=== PATIENT | female | born 1990 | race Caucasian/White ===

== ENCOUNTER 2017-11-25 12:27 | Emergency (ER) | payer MEDICAID ==
[~2017-11-25] VITALS: Ht 162.6 cm; Wt 76.4 kg
[2017-11-25 12:41] VITALS: BP 160/100
[2017-11-25] MEDS ORDERED: ONDANSETRON ODT 4 MG PO ONE (13:00)
[2017-11-25] MEDS ORDERED: PLEASE ENTER ALLERGIES MC SCH (13:00)
[2017-11-25] MEDS ORDERED: RABIES IMMUNE GLOBULIN/PF 150 UNITS/ML, 2ML IM ONE (13:00)
[2017-11-25] MEDS ORDERED: RABIES VACCINE /PF 2.5 UNITS IM-VACC ONE (13:00)
[2017-11-25] MEDS ORDERED: DIPH,PERTUSS(ACELL),TET VAC/PF 0.5 ML IM-VACC ONE ×2 (13:00→13:06)
[2017-11-25] MEDS ORDERED: ONDANSETRON ODT 4 MG ONE (13:06)
[2017-11-25] MEDS ORDERED: RABIES IMMUNE GLOBULIN/PF 300 UNITS/ML,1ML IM ONE (13:30)
[2017-11-25] MEDS ORDERED: PROMETHAZINE 25 MG SUPP PR PRN (13:30)
== END 2017-11-25 14:37 | disposition home or self-care (01) ==
LOC: ED 14:30
DX: S41.052A Open bite of left shoulder, initial encounter (principal); Z29.14 Encounter for prophylactic rabies immune globulin; W55.01XA Bitten by cat, initial encounter; Y93.89 Activity, other specified; Y92.009 Unspecified place in unspecified non-institutional (private) residence as the place of occurrence of the external cause; Y99.8 Other external cause status
CPT/HCPCS: 73030; 90375; 90471; 90472; 90675; 90715; 96372; 99284; Q0162

== ENCOUNTER 2017-12-01 15:59 | Emergency (ER) | payer MEDICAID ==
[~2017-12-01] VITALS: Ht 162.6 cm; Wt 77.7 kg
[2017-12-01 16:16] VITALS: BP 142/92
[2017-12-01] MEDS ORDERED: RABIES VACCINE /PF 2.5 UNITS IM-VACC ONE (16:30)
== END 2017-12-01 17:07 | disposition home or self-care (01) ==
LOC: ED 17:01
DX: S41.052A Open bite of left shoulder, initial encounter (principal); Z29.14 Encounter for prophylactic rabies immune globulin; F17.200 Nicotine dependence, unspecified, uncomplicated; W55.01XA Bitten by cat, initial encounter; Y93.89 Activity, other specified; Y92.89 Other specified places as the place of occurrence of the external cause; Y99.8 Other external cause status
CPT/HCPCS: 90471; 90675; 99283

== ENCOUNTER 2018-01-20 09:59 | Emergency (ER) | payer MEDICAID ==
[~2018-01-20] VITALS: Ht 162.6 cm; Wt 82.1 kg
[2018-01-20 11:06] LABS: BASOPHILS # (AUTO) 0.01 x10^3/uL (0-0.1); BASOPHILS % (AUTO) 0 % (0-1); EOSINOPHILS # (AUTO) 0.22 x10^3/uL (0-0.4); EOSINOPHILS % (AUTO) 2 % (1-7); LYMPHOCYTES # (AUTO) 2.45 x10^3/uL (1-3.4); LYMPHOCYTES % (AUTO) 23 % (22-44); MD NO; MEAN CORPUSCULAR HEMOGLOBIN 30.6 pg (27.0-34.8); MEAN CORPUSCULAR HGB CONC 33.9 g/dL (32.4-35.8); MEAN CORPUSCULAR VOLUME 90.3 fL (80-100); MEAN PLATELET VOLUME 7.8 fL (7.4-10.4); MONOCYTES # (AUTO) 0.43 x10^3/uL (0.2-0.8); MONOCYTES % (AUTO) 4 % (2-9); NEUTROPHILS % (AUTO) 71 % (42-75); PLATELET COUNT 352 x10^3/uL (130-400); RED BLOOD COUNT 4.52 x10^6/uL (3.82-5.3); RED CELL DISTRIBUTION WIDTH 13.9 % (9.6-15.2)
[2018-01-20 11:16] LABS: ALBUMIN 3.6 g/dL (3.4-5.0); ANION GAP 7 mmol/L (5-15); CHLORIDE 107 mmol/L (98-107)
[2018-01-20 11:27] LABS: MICROSCOPIC AUTO
[2018-01-20 11:28] LABS: CULTURE INDICATED? YES
[2018-01-20 11:34] LABS: CREATININE 0.71 mg/dL (0.55-1.02)
[2018-01-20 12:22] VITALS: BP 130/78
== END 2018-01-20 12:24 | disposition home or self-care (01) ==
LOC: ED 10:53
DX: O03.4 Incomplete spontaneous abortion without complication (principal); R10.30 Lower abdominal pain, unspecified; Z87.891 Personal history of nicotine dependence
CPT/HCPCS: 36415; 76801; 80048; 81001; 82040; 84702; 85025; 86901; 87086; 96372; 99284

== ENCOUNTER 2018-01-22 19:11 | Emergency (ER) | payer MEDICAID ==
[~2018-01-22] VITALS: Ht 162.6 cm; Wt 83.4 kg
[2018-01-22 19:14] VITALS: BP 134/78
== END 2018-01-22 21:21 | disposition home or self-care (01) ==
LOC: ED 19:21
DX: O03.4 Incomplete spontaneous abortion without complication (principal)
CPT/HCPCS: 36415; 84702; 99283

== ENCOUNTER 2018-02-15 10:43 | Emergency (ER) | payer MEDICAID ==
[~2018-02-15] VITALS: Ht 162.6 cm; Wt 82.0 kg
[2018-02-15 11:01] VITALS: BP 133/84
[2018-02-15] MEDS ORDERED: DEXAMETHASONE 4 MG/ML, 1ML ONE (11:59)
[2018-02-15] MEDS ORDERED: DEXAMETHASONE 4 MG/ML, 1ML PO ONE (12:00)
== END 2018-02-15 12:08 | disposition home or self-care (01) ==
LOC: ED 11:17
DX: B34.9 Viral infection, unspecified (principal); Z88.0 Allergy status to penicillin; Z91.040 Latex allergy status
CPT/HCPCS: 87081; 87880; 99283; J1100

== ENCOUNTER 2018-08-23 15:56 | Emergency (ER) | payer MEDICAID ==
[~2018-08-23] VITALS: Ht 162.6 cm; Wt 83.1 kg
[2018-08-23 16:04] VITALS: BP 147/94
--- NOTE | 2018-08-23 17:28 | NUR ---
PT TO ROOM FROM LOBBY
--- NOTE | 2018-08-23 17:28 | NUR ---
THIS IS A 27 YEAR OLD FEMALE WHO STATES THAT SHE IS CONCERNED BECAUSE SHE HAD 3 + PREG TESTS, INCLUDING ONE + BLOOD TEST AND NOW PT IS HAVING NEGATIVE HOME TESTS X 2 TODAY. PT DENIES VB OR ABD CRAMPING. PT REPORTS "I KNOW IT'S REALLY WEIRD, BUT I'M KNOWN TO MISCARRY AND I DON'T HAVE BLEEDING OR CRAMPING, EVEN AT 14 WEEKS" LMP 07/22.
[2018-08-23 17:52] LABS: BASOPHILS # (AUTO) 0.03 x10^3/uL (0-0.1); BASOPHILS % (AUTO) 0 % (0-1); EOSINOPHILS # (AUTO) 0.37 x10^3/uL (0-0.4); EOSINOPHILS % (AUTO) 4 % (1-7); LYMPHOCYTES # (AUTO) 2.93 x10^3/uL (1-3.4); LYMPHOCYTES % (AUTO) 31 % (22-44); MD NO; MEAN CORPUSCULAR HEMOGLOBIN 31.5 pg (27.0-34.8); MEAN CORPUSCULAR HGB CONC 33.8 g/dL (32.4-35.8); MEAN CORPUSCULAR VOLUME 93.1 fL (80-100); MEAN PLATELET VOLUME 8.7 fL (7.4-10.4); MONOCYTES # (AUTO) 0.37 x10^3/uL (0.2-0.8); MONOCYTES % (AUTO) 4 % (2-9); NEUTROPHILS # (AUTO) 5.82 x10^3/uL (1.8-6.8); NEUTROPHILS % (AUTO) 61 % (42-75); PLATELET COUNT 342 x10^3/uL (130-400); RED BLOOD COUNT 4.79 x10^6/uL (3.82-5.3); RED CELL DISTRIBUTION WIDTH 13.5 % (9.6-15.2)
[2018-08-23 17:58] LABS: ANION GAP 4 mmol/L (5-15); CALCIUM 9.1 mg/dL (8.5-10.1); CHLORIDE 108 mmol/L (98-107); CREATININE 0.78 mg/dL (0.55-1.02)
--- NOTE | 2018-08-23 18:43 | NUR ---
Patient/Caregiver given discharge instructions and they have confirmed that they understand the instructions. Patient ambulatory with steady gait.
== END 2018-08-23 19:18 | disposition home or self-care (01) ==
LOC: ED 19:00
DX: O03.9 Complete or unspecified spontaneous abortion without complication (principal)
CPT/HCPCS: 36415; 76830; 80048; 82040; 84703; 85025; 99284

== ENCOUNTER 2019-01-23 11:11 | Emergency (ER) | payer SELFPAY ==
[~2019-01-23] VITALS: Ht 162.6 cm; Wt 84.1 kg
[2019-01-23 11:13] VITALS: BP 139/85
[2019-01-23 11:57] LABS: BASOPHILS # (AUTO) 0.04 x10^3/uL (0-0.1); BASOPHILS % (AUTO) 0 % (0-1); EOSINOPHILS # (AUTO) 0.36 x10^3/uL (0-0.4); EOSINOPHILS % (AUTO) 4 % (1-7); LYMPHOCYTES # (AUTO) 2.42 x10^3/uL (1-3.4); LYMPHOCYTES % (AUTO) 27 % (22-44); MD NO; MEAN CORPUSCULAR HEMOGLOBIN 31.7 pg (27.0-34.8); MEAN CORPUSCULAR VOLUME 93.2 fL (80-100); MEAN PLATELET VOLUME 7.9 fL (7.4-10.4); MONOCYTES # (AUTO) 0.36 x10^3/uL (0.2-0.8); MONOCYTES % (AUTO) 4 % (2-9); NEUTROPHILS # (AUTO) 5.66 x10^3/uL (1.8-6.8); NEUTROPHILS % (AUTO) 64 % (42-75); PLATELET COUNT 309 x10^3/uL (130-400); RED BLOOD COUNT 4.51 x10^6/uL (3.82-5.3); RED CELL DISTRIBUTION WIDTH 13.6 % (9.6-15.2)
[2019-01-23 12:11] LABS: ALBUMIN 3.6 g/dL (3.4-5.0); ANION GAP 5 mmol/L (5-15); CALCIUM 8.7 mg/dL (8.5-10.1); CHLORIDE 108 mmol/L (98-107); CREATININE 0.69 mg/dL (0.55-1.02)
[2019-01-23 13:03] LABS: MICROSCOPIC AUTO
[2019-01-23 13:11] LABS: CULTURE INDICATED? YES
--- NOTE | 2019-01-23 13:46 | NUR ---
Pt provided w/ d/c instructions. Verb. understanding that she needs repeat labs in 3 days.
== END 2019-01-23 13:49 | disposition home or self-care (01) ==
LOC: ED 12:21
DX: O20.0 Threatened abortion (principal); M54.5 Low back pain; Z3A.08 8 weeks gestation of pregnancy
CPT/HCPCS: 36415; 76801; 80048; 81001; 82040; 84702; 85025; 87086; 99284

== ENCOUNTER 2019-01-25 16:18 | Emergency (ER) | payer SELFPAY ==
[~2019-01-25] VITALS: Ht 162.6 cm; Wt 86.0 kg
[2019-01-25 18:24] VITALS: BP 138/86
== END 2019-01-25 18:27 | disposition home or self-care (01) ==
LOC: ED 18:05
DX: O20.0 Threatened abortion (principal); Z3A.08 8 weeks gestation of pregnancy
CPT/HCPCS: 36415; 84702; 99283

== ENCOUNTER 2019-09-19 13:34 | Emergency (ER) | payer MEDICAID ==
[~2019-09-19] VITALS: Ht 162.6 cm; Wt 86.8 kg
[2019-09-19 13:39] VITALS: BP 163/97
--- NOTE | 2019-09-19 14:13 | NUR ---
[employer] OPERATOR HELPER: PT TO ROOM FROM [facility].
--- NOTE | 2019-09-19 14:30 | NUR ---
ANG-Shaun IS AT THE BEDSIDE FOR ASSESSMENT
[2019-09-19 15:06] LABS: BASOPHILS # (AUTO) 0.03 x10^3/uL (0-0.1); BASOPHILS % (AUTO) 0 % (0-1); EOSINOPHILS # (AUTO) 0.24 x10^3/uL (0-0.4); EOSINOPHILS % (AUTO) 2 % (1-7); LYMPHOCYTES # (AUTO) 2.54 x10^3/uL (1-3.4); LYMPHOCYTES % (AUTO) 24 % (22-44); MD NO; MEAN CORPUSCULAR HEMOGLOBIN 31.3 pg (27.0-34.8); MEAN CORPUSCULAR HGB CONC 34.2 g/dL (32.4-35.8); MEAN CORPUSCULAR VOLUME 91.3 fL (80-100); MEAN PLATELET VOLUME 7.7 fL (7.4-10.4); MONOCYTES # (AUTO) 0.43 x10^3/uL (0.2-0.8); MONOCYTES % (AUTO) 4 % (2-9); NEUTROPHILS # (AUTO) 7.49 x10^3/uL (1.8-6.8); NEUTROPHILS % (AUTO) 70 % (42-75); PLATELET COUNT 335 x10^3/uL (130-400); RED BLOOD COUNT 4.77 x10^6/uL (3.82-5.3); RED CELL DISTRIBUTION WIDTH 13.5 % (9.6-15.2)
--- NOTE | 2019-09-19 15:06 | NUR ---
ALEX (RN) IS ASSUMING CARE OF THIS PT WHILE I HAVE A LUNCH BREAK. SBAR REPORT WAS EXCHANGED AT THE BEDSIDE.
[2019-09-19 15:15] LABS: ALANINE AMINOTRANSFERASE 22 U/L (12-78); ALBUMIN 3.8 g/dL (3.4-5.0); ANION GAP 7 mmol/L (5-15); CALCIUM 9.4 mg/dL (8.5-10.1); CHLORIDE 106 mmol/L (98-107); CREATININE 0.69 mg/dL (0.55-1.02)
--- NOTE | 2019-09-19 15:16 | NUR ---
BREAK RN: OBTAINED URINED, SENT TO LAB. PT BACK TO BED, REQUESTED NO ADDITIONAL NEEDS AT THIS TIME
[2019-09-19 15:33] LABS: ALKALINE PHOSPHATASE 53 U/L (45-117); BILIRUBIN,TOTAL 0.4 mg/dL (0.2-1.0); TOTAL PROTEIN 7.7 g/dL (6.4-8.2)
[2019-09-19 16:06] LABS: MICROSCOPIC INDICATED
--- NOTE | 2019-09-19 17:10 | NUR ---
PT TO AND FROM ULTRASOUND W TECH. SHE TOLERATED THE IMAGING WELL.
--- NOTE | 2019-09-19 18:05 | NUR ---
IS AT THE BEDSIDE FOR RECHECK.
== END 2019-09-19 18:50 | disposition home or self-care (01) ==
LOC: ED 15:27
DX: O26.891 Other specified pregnancy related conditions, first trimester (principal); R10.84 Generalized abdominal pain; R51 Headache; M54.5 Low back pain; Z3A.10 10 weeks gestation of pregnancy
CPT/HCPCS: 36415; 76801; 80053; 81001; 84702; 85025; 86901; 87086; 99284

== ENCOUNTER 2019-11-16 19:24 | Emergency (ER) | payer MEDICAID ==
[~2019-11-16] VITALS: Ht 162.6 cm; Wt 92.8 kg
--- NOTE | 2019-11-16 19:28 | NUR ---
MT: CALLED L&D TO INFROM THEM OF THIS PT. THEY STATED SHE NEEDS TO CHECK IN HERE IN THE ED BECAUSE SHE IS <20 WEEKS.
--- NOTE | 2019-11-16 19:54 | NUR ---
PT 19 WEEKS , HAS HISTORY OF 19 MISSCARRAGES. CAME IN TODAY BECAUSE SHE HAS BEEN HAVING CRAMPING AND HAVING LOOSE STOOLS SINCE YESTERDAY. PT TOOK IMMODIUM AND EXTRA STRENGTH TYLENOL LAST NIGHT. NO MORE LOOSE STOOLS BUT STILL HAS 7/10 CRAMPING PAIN. PT RESTING IN GURNEY, GAURDED MOVEMENT, SKIN PINK, DRY AND INTACT. PLACED ON MONITORS, NO IMMEDIATE NEEDS AT THIS TIME Addendum: 11/16/19 at 9 by BASSAM CORRECTION: 7 MISSCARRAGES (NOT 19)
--- NOTE | 2019-11-16 20:05 | NUR ---
PT STATES UNABLE TO PROVIDE URINE SAMPLE AT THIS MOMENT
--- NOTE | 2019-11-16 20:11 | NUR ---
ERP AT BEDSIDE FOR EVAL
[2019-11-16] MEDS ORDERED: ACETAMINOPHEN 325 MG TABLET ONE (20:29)
[2019-11-16] MEDS ORDERED: ACETAMINOPHEN 325 MG TABLET PO ONE (20:30)
[2019-11-16 20:55] LABS: BASOPHILS # (AUTO) 0.02 x10^3/uL (0-0.1); BASOPHILS % (AUTO) 0 % (0-1); EOSINOPHILS % (AUTO) 4 % (1-7); LYMPHOCYTES # (AUTO) 2.62 x10^3/uL (1-3.4); LYMPHOCYTES % (AUTO) 19 % (22-44); MD NO; MEAN CORPUSCULAR HEMOGLOBIN 31.4 pg (27.0-34.8); MEAN CORPUSCULAR HGB CONC 34.1 g/dL (32.4-35.8); MEAN CORPUSCULAR VOLUME 92.1 fL (80-100); MEAN PLATELET VOLUME 7.4 fL (7.4-10.4); MONOCYTES # (AUTO) 0.58 x10^3/uL (0.2-0.8); MONOCYTES % (AUTO) 4 % (2-9); NEUTROPHILS # (AUTO) 10.37 x10^3/uL (1.8-6.8); NEUTROPHILS % (AUTO) 74 % (42-75); PLATELET COUNT 327 x10^3/uL (130-400); RED BLOOD COUNT 4.15 x10^6/uL (3.82-5.3); RED CELL DISTRIBUTION WIDTH 13.7 % (9.6-15.2)
[2019-11-16 21:05] LABS: ALANINE AMINOTRANSFERASE 25 U/L (12-78); ANION GAP 9 mmol/L (5-15); CALCIUM 8.8 mg/dL (8.5-10.1); CHLORIDE 108 mmol/L (98-107); CREATININE 0.67 mg/dL (0.55-1.02)
[2019-11-16 21:08] LABS: ALKALINE PHOSPHATASE 57 U/L (45-117); BILIRUBIN,TOTAL 0.2 mg/dL (0.2-1.0); TOTAL PROTEIN 6.9 g/dL (6.4-8.2)
[2019-11-16 21:09] LABS: MICROSCOPIC INDICATED
[2019-11-16 21:34] VITALS: BP 113/66
--- NOTE | 2019-11-16 21:36 | NUR ---
PT RESTING IN BED, PT STATES PAIN IN 4/10 NOW. NO NEEDS AT THIS TIME, AWAITING ULTRASOUND RESULTS
== END 2019-11-16 22:04 | disposition home or self-care (01) ==
LOC: ED 20:05
DX: O99.612 Diseases of the digestive system complicating pregnancy, second trimester (principal); K52.9 Noninfective gastroenteritis and colitis, unspecified; N39.0 Urinary tract infection, site not specified; Z3A.19 19 weeks gestation of pregnancy
CPT/HCPCS: 36415; 76815; 80053; 81001; 85025; 87086; 99284

== ENCOUNTER 2020-08-12 14:09 | Emergency (ER) | payer MEDICAID ==
[~2020-08-12] VITALS: Ht 162.6 cm; Wt 91.7 kg
[2020-08-12] MEDS ORDERED: AMPH30CA6 PO (14:50)
[2020-08-12] MEDS ORDERED: CEPH-376 PO (14:50)
--- NOTE | 2020-08-12 14:50 | NUR ---
Pt in radiology.
[2020-08-12] MEDS ORDERED: BACITRACIN ZINC OINT 500U/GM, 0.9 GM ONE (14:53)
--- NOTE | 2020-08-12 15:01 | NUR ---
Pt back to room. EMT's at bedside for wound care with Bacitracin removed by RN from [facility] and at bedside for use with wound care/ dsgs application.
--- NOTE | 2020-08-12 15:08 | NUR ---
Radiology result reviewed and chart marked for recheck.
--- NOTE | 2020-08-12 15:12 | NUR ---
Dsgs assessed and pt notified of wait for MD discussion of findings and suggested plan of care.
[2020-08-12 15:28] VITALS: BP 125/73
== END 2020-08-12 15:30 | disposition home or self-care (01) ==
LOC: ED 15:20
DX: S93.491A Sprain of other ligament of right ankle, initial encounter (principal); S80.212A Abrasion, left knee, initial encounter; L03.116 Cellulitis of left lower limb; Z90.49 Acquired absence of other specified parts of digestive tract; Z90.89 Acquired absence of other organs; W01.0XXA Fall on same level from slipping, tripping and stumbling without subsequent striking against object, initial encounter; Y92.009 Unspecified place in unspecified non-institutional (private) residence as the place of occurrence of the external cause; Y99.8 Other external cause status
CPT/HCPCS: 99283